=== PATIENT | male | born 1980 | race Two or more races ===

== ENCOUNTER 2016-10-18 10:19 | Inpatient (IN) | payer SELFPAY ==
[~2016-10-18] VITALS: Ht 185.4 cm; Wt 107.0 kg
[2016-10-18 11:14] LABS: Basophils # (auto) 0 uL; Basophils % (auto) 0.2 % (0.0-2.0); Eosinophils # (auto) 0 uL; Eosinophils % (auto) 0.2 % (0.0-7.0); Hematocrit 42.5 % (41.0-53.0); Hemoglobin 14.4 g/dL (13.5-17.5); Lymphocytes # (auto) 1.6 uL; Lymphocytes % (auto) 11.7 % (10.0-50.0); Mean Corpuscular Hemoglobin 30.5 pg (28.0-32.0); Mean Corpuscular Hgb Conc. 33.8 g/dL (32.0-36.0); Mean Corpuscular Volume 90.2 fL (80.0-100.0); Mean Platelet Volume 8.8 fL (7.4-10.4); Neutrophils # (auto) 10.9 uL; Neutrophils % (auto) 80.9 % (37.0-80.0); Platelet Count (auto) 239 10^3/uL (140-450); Red Cell Distribution Width 13.3 % (11.6-16.0); White Blood Cell 13.5 10^3/uL (4.4-10.8)
[2016-10-18 11:35] LABS: Albumin 4.2 g/dL (3.4-5.0); BUN/Creatinine Ratio 12.4; Bilirubin, Total 0.8 mg/dL (0.2-1.0); Calcium 9.7 mg/dL (8.5-10.1); Potassium 3.9 mmol/L (3.5-5.1)
[2016-10-18 11:47] LABS: Urine Bilirubin Negative (Negative); Urine Blood Negative /uL (Negative); Urine Color Yellow (Yellow); Urine Glucose Normal (Normal); Urine Ketone Negative (Negative); Urine Mucus FEW (None Seen); Urine Nitrite Negative (Negative); Urine RBC <1 /hpf (0 - 3); Urine Squamous Epithelial Cell FEW /hpf (<5)
[2016-10-18] MEDS ORDERED: SODIUM CHLORIDE 0.9% 1,000 ML IVB ONE (14:51)
[2016-10-18] MEDS ORDERED: LEVOFLOXACIN 500MG 100 ML IV ONE ×2 (15:00→16:30)
[2016-10-18] MEDS ORDERED: metroNIDAZOLE 500MG/100ML 100 ML IV ONE (15:00)
[2016-10-18] MEDS ORDERED: cloNIDine HCL 0.1 MG TAB PO PRN (16:30)
[2016-10-18] MEDS ORDERED: TEMAZEPAM 15 MG CAP PO PRN (16:45)
[2016-10-18] MEDS ORDERED: MORPHINE SULF INJ 2 MG/ML SYRINGE 1ML IV PRN (16:45)
[2016-10-18] MEDS ORDERED: ONDANSETRON HCL 4 MG/2 ML VIAL IV PRN (16:45)
[2016-10-18] MEDS ORDERED: DOCUSATE SOD 100 MG CAP PO PRN (16:45)
[2016-10-18] MEDS ORDERED: ACETAMINOPHEN 325 MG TAB PO PRN (16:45)
[2016-10-18] MEDS: SODIUM CHLORIDE 0.9% 1,000 ML IV SCH ×5 (16:57→18:56)
[2016-10-18 21:49] VITALS: BP 155/86
[2016-10-18] MEDS: metroNIDAZOLE 500MG/100ML 100 ML IV SCH (22:31)
[2016-10-18] MEDS: HYDROcodone-ACET 5/325MG TAB PO PRN (22:32)
[2016-10-19] MEDS: metroNIDAZOLE 500MG/100ML 100 ML IV SCH ×3 (05:47→22:07)
[2016-10-19] MEDS: HYDROcodone-ACET 5/325MG TAB PO PRN ×2 (05:48→16:59)
[2016-10-19 05:52] LABS: Basophils # (auto) 0 uL; Basophils % (auto) 0.4 % (0.0-2.0); Eosinophils # (auto) 0.1 uL; Eosinophils % (auto) 0.9 % (0.0-7.0); Hematocrit 38.1 % (41.0-53.0); Hemoglobin 12.7 g/dL (13.5-17.5); Lymphocytes % (auto) 19.4 % (10.0-50.0); Mean Corpuscular Hemoglobin 30.1 pg (28.0-32.0); Mean Corpuscular Hgb Conc. 33.4 g/dL (32.0-36.0); Mean Corpuscular Volume 90.4 fL (80.0-100.0); Mean Platelet Volume 9.4 fL (7.4-10.4); Monocytes # (auto) 0.8 uL; Monocytes % (auto) 8.2 % (0.0-12.0); Neutrophils # (auto) 7.2 uL; Neutrophils % (auto) 71.1 % (37.0-80.0); Platelet Count (auto) 206 10^3/uL (140-450); Red Cell Distribution Width 13.4 % (11.6-16.0); White Blood Cell 10.1 10^3/uL (4.4-10.8)
[2016-10-19 06:21] LABS: Albumin 3.5 g/dL (3.4-5.0); BUN/Creatinine Ratio 11.7; Bilirubin, Total 0.6 mg/dL (0.2-1.0); Potassium 3.8 mmol/L (3.5-5.1); Total Protein 7.1 g/dL (6.4-8.2)
[2016-10-19 08:00] VITALS: BP 131/71
[2016-10-19] MEDS: MULTIPLE VITAMIN TAB PO SCH (09:50)
[2016-10-19 11:58] VITALS: BP 128/77
[2016-10-19 16:00] VITALS: BP 133/76
[2016-10-19] MEDS ORDERED: PIPERACILLIN-TAZOB 3.375GM 100 ML IV ONE (19:00)
[2016-10-19] MEDS: LEVOFLOXACIN 500MG 100 ML IV SCH (19:31)
[2016-10-19 22:11] VITALS: BP 150/94
[2016-10-19] MEDS: PIPERACILLIN-TAZOB 3.375GM 100 ML IV SCH (23:48)
[2016-10-20] MEDS ORDERED: PIPERACILLIN-TAZOB 3.375GM 100 ML IV SCH
[2016-10-20] MEDS: SODIUM CHLORIDE 0.9% 1,000 ML IV SCH (01:32)
[2016-10-20 05:27] VITALS: BP 141/77
[2016-10-20] MEDS: PIPERACILLIN-TAZOB 3.375GM 100 ML IV SCH (05:37)
[2016-10-20] MEDS: metroNIDAZOLE 500MG/100ML 100 ML IV SCH ×2 (05:37→13:59)
[2016-10-20 06:16] LABS: Basophils # (auto) 0.1 uL; Basophils % (auto) 0.6 % (0.0-2.0); Eosinophils # (auto) 0.1 uL; Eosinophils % (auto) 1.1 % (0.0-7.0); Hematocrit 39.2 % (41.0-53.0); Hemoglobin 12.9 g/dL (13.5-17.5); Lymphocytes # (auto) 1.8 uL; Lymphocytes % (auto) 20.1 % (10.0-50.0); Mean Corpuscular Hgb Conc. 32.8 g/dL (32.0-36.0); Mean Corpuscular Volume 91.3 fL (80.0-100.0); Mean Platelet Volume 9.1 fL (7.4-10.4); Monocytes # (auto) 0.9 uL; Monocytes % (auto) 10.8 % (0.0-12.0); Neutrophils # (auto) 5.9 uL; Neutrophils % (auto) 67.4 % (37.0-80.0); Platelet Count (auto) 225 10^3/uL (140-450); Red Cell Distribution Width 12.2 % (11.6-16.0); White Blood Cell 8.8 10^3/uL (4.4-10.8)
[2016-10-20 09:00] VITALS: BP 130/79
[2016-10-20] MEDS: MULTIPLE VITAMIN TAB PO SCH (09:35)
[2016-10-20] MEDS: LEVOFLOXACIN 500MG 100 ML IV SCH (09:35)
[2016-10-20 12:45] VITALS: BP 137/68
[2016-10-20] MEDS: HYDROcodone-ACET 5/325MG TAB PO PRN (13:57)
[2016-10-20] MEDS ORDERED: METR500T PO (16:04)
[2016-10-20] MEDS ORDERED: LEVO500T3 PO (16:04)
[2016-10-20] MEDS ORDERED: NOR5T PO (16:06)
[2016-10-20 16:33] VITALS: BP 136/78
[2016-10-20 16:36] VITALS: BP 137/68
== END 2016-10-20 18:00 | disposition home or self-care (01) | DRG 392 ==
LOC: ER 10:29 → OVERFLOW 10:30 → WEST WING 17:39
PROVIDERS: ADMIT Internal Medicine; ATTEND Internal Medicine
DX: K57.32 Diverticulitis of large intestine without perforation or abscess without bleeding (principal); R03.0 Elevated blood-pressure reading, without diagnosis of hypertension; R16.0 Hepatomegaly, not elsewhere classified; I51.7 Cardiomegaly; K76.0 Fatty (change of) liver, not elsewhere classified; Z87.891 Personal history of nicotine dependence; Z80.0 Family history of malignant neoplasm of digestive organs
CPT/HCPCS: 36415; 74176; 80053; 81001; 83735; 84132; 85025; 94761; 96365; 96368; J1956; J2543; J3490

== ENCOUNTER 2019-11-26 16:34 | Emergency (ER) | payer MEDICAID ==
[~2019-11-26] VITALS: Ht 185.4 cm; Wt 104.3 kg
[~2019-11-26 16:34] MED LIST: HYDR-4833 PO; LEVO500T21 PO; METR500T PO
[2019-11-26] MEDS ORDERED: KETOROLAC TROMETH 60MG/2ML VIAL IM ONE (18:15)
[2019-11-26 20:23] VITALS: BP 146/81
== END 2019-11-26 21:10 | disposition home or self-care (01) ==
LOC: ER 16:34
DX: M25.511 Pain in right shoulder (principal); I10 Essential (primary) hypertension; Z87.891 Personal history of nicotine dependence; X58.XXXA Exposure to other specified factors, initial encounter; Y93.89 Activity, other specified; Y92.89 Other specified places as the place of occurrence of the external cause; Y99.8 Other external cause status
CPT/HCPCS: 73030; 73200; 96372; 99284; J1885

== ENCOUNTER 2024-04-30 17:13 | Inpatient (IN) | payer MEDICAID ==
[~2024-04-30] VITALS: Ht 185.4 cm; Wt 109.8 kg
[~2024-04-30 17:13] MED LIST changes: -LEVO500T21 PO; +LEVO500T31 PO
[2024-04-30 18:01] LABS: Urine Bacteria None Seen /hpf (None Seen)
[2024-04-30 18:18] LABS: Urine Blood Negative /uL (Negative); Urine Clarity Turbid (Clear); Urine Color Light-Yellow (Yellow); Urine Protein, UAD Negative (Negative); Urine Specific Gravity 1.011 (1.001-1.035); Urine Urobilinogen Normal (Negative); Urine WBC 2 /hpf (0 - 3); Urine pH 7.5 (5.0-9.0)
[2024-04-30 18:51] LABS: Basophils # (auto) 0 10 ^3/uL (0-0.2); Basophils % (auto) 0.5 % (0.0-2.0); Eosinophils # (auto) 0.1 10 ^3/uL (0-0.8); Eosinophils % (auto) 0.7 % (0.0-7.0); Hematocrit 39.7 % (41.0-53.0); Hemoglobin 13.9 g/dL (13.5-17.5); Lymphocytes # (auto) 1.5 10 ^3/uL (0.4-5.4); Lymphocytes % (auto) 16.1 % (10.0-50.0); Mean Corpuscular Hemoglobin 30.2 pg (28.0-32.0); Mean Corpuscular Volume 86.4 fL (80.0-100.0); Monocytes # (auto) 0.7 10 ^3/uL (0-1.3); Monocytes % (auto) 7.3 % (0.0-12.0); Neutrophils # (auto) 7.1 10 ^3/uL (1.6-8.6); Neutrophils % (auto) 75.4 % (37.0-80.0); Red Cell Distribution Width 14.3 % (11.8-14.3); White Blood Cell 9.4 10^3/uL (4.4-10.8)
[2024-04-30 19:02] LABS: Alanine Aminotransferase 24 U/L (7-40); Albumin 4.6 g/dL (3.2-4.8); Alkaline Phosphatase 105 U/L (46-116); Anion Gap 8 (5-15); Aspartate Aminotransferase 12 U/L (13-40); BUN/Creatinine Ratio 11.7 (10.0-20.0); Blood Urea Nitrogen 9 mg/dL (9-23); Calcium 10.1 mg/dL (8.7-10.4); Carbon Dioxide 26 mmol/L (20-30); Chloride 105 mmol/L (98-107); Glucose 111 mg/dL (74-106); Potassium 3.8 mmol/L (3.5-5.1); Sodium 139 mmol/L (136-145)
[2024-04-30 19:03] LABS: Bilirubin, Total 0.5 mg/dL (0.2-1.0); Total Protein 7.2 g/dL (5.7-8.2)
[2024-04-30] MEDS: ONDANSETRON HCL 4 MG/2 ML VIAL IV ONE (21:21)
[2024-04-30] MEDS: MORPHINE SULFATE 4 MG/ML SYR/VIAL IV ONE (21:21)
[2024-04-30] MEDS: metroNIDAZOLE 500MG/100ML 100 ML IV ONE (21:22)
[2024-04-30 21:30] VITALS: PULSE 74; RESP 16; O2SAT 98
[2024-04-30] MEDS ORDERED: ACETAMINOPHEN 325 MG TAB PO PRN (23:00)
[2024-04-30] MEDS ORDERED: NITROGLYCERIN 0.4 MG SL TAB SL PRN (23:00)
[2024-04-30] MEDS ORDERED: ONDANSETRON HCL 4 MG/2 ML VIAL IV PRN (23:00)
[2024-04-30] MEDS ORDERED: MORPHINE SULFATE INJ 2 MG/ml SYRG IV PRN (23:00)
[2024-05-01] MEDS: HYDROcodone-ACET 5/325MG TAB PO PRN (03:43)
[2024-05-01] MEDS: SODIUM CHLORIDE 0.9% 1,000 ML IV SCH (08:13)
[2024-05-01] MEDS: metroNIDAZOLE 500MG/100ML 100 ML IV SCH (08:14)
[2024-05-01] MEDS: levoFLOXacin 500MG 100 ML IV SCH (08:14)
[2024-05-01 08:41] LABS: Basophils # (auto) 0 10 ^3/uL (0-0.2); Basophils % (auto) 0.3 % (0.0-2.0); Eosinophils # (auto) 0.1 10 ^3/uL (0-0.8); Eosinophils % (auto) 0.8 % (0.0-7.0); Hematocrit 39.6 % (41.0-53.0); Lymphocytes # (auto) 2.3 10 ^3/uL (0.4-5.4); Lymphocytes % (auto) 21.5 % (10.0-50.0); Mean Corpuscular Hemoglobin 30.3 pg (28.0-32.0); Mean Corpuscular Hgb Conc. 35.3 g/dL (32.0-36.0); Mean Corpuscular Volume 85.9 fL (80.0-100.0); Monocytes # (auto) 0.9 10 ^3/uL (0-1.3); Monocytes % (auto) 8.6 % (0.0-12.0); Neutrophils # (auto) 7.4 10 ^3/uL (1.6-8.6); Neutrophils % (auto) 68.8 % (37.0-80.0); Nucleated Red Blood Cells % 0.2 %; Red Blood Cells 4.61 10^6/uL (4.5-5.90); Red Cell Distribution Width 14.3 % (11.8-14.3); White Blood Cell 10.7 10^3/uL (4.4-10.8)
[2024-05-01 08:50] LABS: Alanine Aminotransferase 23 U/L (7-40); Alkaline Phosphatase 112 U/L (46-116); Anion Gap 6 (5-15); Calcium 10.4 mg/dL (8.7-10.4); Carbon Dioxide 28 mmol/L (20-30); Chloride 104 mmol/L (98-107); Sodium 138 mmol/L (136-145)
[2024-05-01 08:51] LABS: BUN/Creatinine Ratio 11.8 (10.0-20.0); Blood Urea Nitrogen 10 mg/dL (9-23); Glucose 91 mg/dL (74-106)
[2024-05-01 08:52] LABS: Aspartate Aminotransferase 11 U/L (13-40)
[2024-05-01 08:53] LABS: Albumin 4.8 g/dL (3.2-4.8)
[2024-05-01 08:54] LABS: Bilirubin, Total 0.7 mg/dL (0.2-1.0); Total Protein 7.5 g/dL (5.7-8.2)
[2024-05-01] MEDS: metroNIDAZOLE 500 MG TAB PO ONE (19:11)
[2024-05-01 22:02] VITALS: BP 137/81; PULSE 87; RESP 17; TEMP 98.1; O2SAT 99
[2024-05-01] MEDS: metroNIDAZOLE 500 MG TAB PO SCH (23:00)
[2024-05-01] MEDS: MORPHINE SULFATE INJ 2 MG/ml SYRG IV PRN (23:01)
[2024-05-01 23:05] VITALS: BP 136/67; PULSE 76; RESP 18; TEMP 98.6; O2SAT 98
[2024-05-02] VITALS (8 sets, daily range): BP systolic 117–138; BP diastolic 76–84; PULSE 65–98; RESP 18–20; TEMP 98–98.8; O2SAT 94–98
[2024-05-02] MEDS: DOCUSATE SOD 100 MG CAP PO ONE (12:15)
[2024-05-02] MEDS: DOCUSATE SOD 100 MG CAP PO SCH (21:46)
[2024-05-03 01:00] VITALS: BP 132/80; PULSE 81; RESP 18; TEMP 98.1; O2SAT 99
[2024-05-03 05:00] VITALS: BP 127/70; PULSE 67; RESP 18; TEMP 97.8; O2SAT 97
[2024-05-03 08:00] VITALS: PULSE 69
[2024-05-03 09:00] VITALS: BP 143/73; PULSE 85; RESP 16; TEMP 97.6; O2SAT 96
[2024-05-03] MEDS ORDERED: LEVO500T91 PO (09:35)
[2024-05-03] MEDS ORDERED: HYDR-4902 PO (09:35)
[2024-05-03] MEDS ORDERED: METR-344 PO (09:35)
[2024-05-03 13:00] VITALS: BP 141/85; PULSE 89; RESP 20; TEMP 98.1; O2SAT 97
[2024-05-03 17:00] VITALS: BP 122/76; PULSE 103; RESP 16; TEMP 98; O2SAT 95
== END 2024-05-03 18:24 | disposition home or self-care (01) | DRG 244 ==
LOC: ER 17:13 → TELE 22:48 → TELE-WESTW 05-01 22:02
PROVIDERS: ADMIT Internal Medicine; ATTEND Internal Medicine
DX: K57.32 Diverticulitis of large intestine without perforation or abscess without bleeding (principal); E66.9 Obesity, unspecified; I10 Essential (primary) hypertension; Z80.0 Family history of malignant neoplasm of digestive organs; Z68.31 Body mass index [BMI] 31.0-31.9, adult; Z87.19 Personal history of other diseases of the digestive system
CPT/HCPCS: 36415; 74176; 74178; 80053; 81001; 85025; 96365; 96366; 96375; G0378; J1956; J2405; J3490